=== PATIENT | female | born 1960 | race Caucasian/White ===

== ENCOUNTER → 2016-04-12 | Outpatient (CLI) | payer OTHER ==
--- NOTE | 2016-04-12 17:47 | MA ---
Screening Digital Mammogram With iCAD Analysis Clinical Indications: Routine screening. Patient has had benign right breast biopsies. Technique: Standard cephalocaudal projections are obtained. Digital breast tomosynthesis was performe d in the MLO projection with reconstruction at 1.0 mm slice thickness and composite MLO views reconst ructed. This examination is processed by the iCAD computer aided detection system. Comparison: March 2015, September 2013, April 2012, April 2011, April 2010, February 2009, 2007. Breast density: Type D: Extremely dense. Findings: CAD was reviewed. No masses, suspicious calcifications or secondary signs of malignancy are seen. There has been no significant change in the appearance of either breast. Impression: Negative mammogram. BI-RADS 1. Recommendation: Routine mammographic screening in one year as long as physical examination is negativ e in this patient with extremely dense breast parenchyma. [facility] will send a result letter to the patient. Negative mammography should not preclude additional workup of a clinically suspicious finding. The patient's information is entered into a reminder system with a target due date for her next mammo gram.
== END ==
LOC: FIMAGING 15:54
DX: Z12.31 Encounter for screening mammogram for malignant neoplasm of breast (principal)
CPT/HCPCS: G0202

== ENCOUNTER 2017-02-25 11:21 | Emergency (ER) | payer OTHER ==
[2017-02-25 11:29] VITALS: TEMP 97.9
--- NOTE | 2017-02-25 11:38 | EDPHY ---
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 which has resolved Time Seen by Provider: 02/25/17 11:38 - Personal History LMP (Females 10-55): 22-28 Days Ago Current Tetanus/Diphtheria Vaccine: Unsure - Medical/Surgical History Hx Asthma: No Hx Chronic Respiratory Disease: No Hx Diabetes: No Hx Cardiac Disease: No Hx Renal Disease: No Hx Cirrhosis: No Hx Alcoholism: No Hx HIV/AIDS: No Hx Splenectomy or Spleen Trauma: No Other PMH: migraines - Social History Smoking Status: Never smoked Constitutional: Initial Vital Signs Temperature (C) 36.6 C 02/25/17 11:26 Heart Rate 77 02/25/17 11:26 Respiratory Rate 16 02/25/17 11:26 Blood Pressure 104/86 H 02/25/17 11:26 O2 Sat (%) 99 02/25/17 11:26 O2 Delivery Mode Room Air Allergies/Adverse Reactions: anesthesia Allergy (Uncoded 02/25/17 11:26) Home Medications: Medication Instructions Recorded SUMAtriptan 02/25/17 Medical Decision Making - Diagnostics Imaging Results: Imaging Impressions Brain MRI 02/25/17 11:46 Impression: Normal MRI of the brain without contrast. Results called to Dr. Silva at 1:35 PM Extremity Venous Study 02/25/17 11:47 Impression: No deep venous thrombosis right leg. Results conveyed to Dr. Silva at 1:15 PM. Imaging: Discussed imaging studies w/ bilingual call center representative Radiologist, I viewed and interpreted images myself ED Course/Re-evaluation: CHIEF COMPLAINT: Right eye and calf pain HISTORY OF PRESENT ILLNESS: The patient is a 56 y/o female complaining of sharp right eye pain and right leg pain. For the past 2-3 weeks she had right calf pain, but last night it felt like the pain was moving up to the back of her thigh. For the past 2-3 days she felt like her heart rate has been faster and she has had a mild pressure in her chest. She has also felt more tired than normal for several days. The sharp eye pain woke her up this morning, but she was able to fall back asleep. When she woke up, her right eye felt more tired and droopy than normal. However, her family does not believe the right side of her face looks different than usual. Denies extremity weakness or numbness, headache, fever or other pertinent symptoms. REVIEW OF SYSTEMS: A 10 point review of systems was performed and is negative with the exception of the elements mentioned in the history of present illness. PHYSICAL EXAM: HR, BP, O2 Sat, RR. Temp noted General Appearance: Alert, well hydrated, appropriate, and non-toxic appearing. Head: Atraumatic without scalp tenderness or obvious injury Eyes: Pupils equal, round, reactive to light and accommodation, EOMI, no trauma , no injection. Ears: Clear bilaterally, no perforation, normal landmarks Nose: Atraumatic, no rhinorrhea, clear. Throat: Mucus membranes moist. Neck: Supple, nontender, no lymphadenopathy. Respiratory: No retractions, no distress, no wheezes, and no accessory muscle use. Lungs are clear to auscultation bilaterally. Cardiovascular: Regular rate and rhythm, no murmurs, rubs, or gallops. Good capillary refill all extremities. Gastrointestinal: Abdomen is soft, nontender, non-distended, no masses, no rebound, no guarding, no peritoneal signs. Musculoskeletal: Normal active ROM of all extremities, atraumatic. Neurological: Alert, appropriate, and interactive. The patient has normal DTRs and non-focal cranial nerves, motor, sensory, and cerebellar exam. Skin: No rashes, good turgor, no nodules on palpation. 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 See hard copy and/or "tracemaster" electronic copy for interpretation. Right lower extremity US: Negative Brain MRI: Negative DIFFERENTIAL DIAGNOSIS: MEDICAL DECISION MAKING: The patient is a 56 y/o female presenting with sharp right eye pain, right calf pain, and mild chest pressure. Her physical exam is normal. BMP, CBC, labs, right leg US, brain MRI, and EKG ordered. 1155: Nurse reports that the patient had a vasovagal episode while standing up to go to the bathroom. 1230: 1mg IV Ativan administered, so patient can have an MRI study. 1313: Spoke with radiologist, patient has a negative RLE US. 1339: Spoke with radiologist, he reports the patient's brain MRI is negative. 1343: Reassessed patient and discussed imaging findings. She now admits that her migraines begin behind her right eye and believes this may be the beginning of a migraine. Return precautions provided; patient and her family are comfortable with this plan. - Data Points Laboratory Results: Laboratory Results 02/25/17 11:40 02/25/17 11:40 02/25/17 02/25/17 02/25/17 12:06 11:40 11:40 WBC 8.64 10^3/uL 10^3/uL (3.80-9.50) RBC 4.63 10^6/uL 10^6/uL (4.18-5.33) Hgb 14.3 g/dL g/dL (12.6-16.3) POC Hgb 14.6 gm/dL gm/dL (12.6-16.3) Hct 41.4 % % (38.0-47.0) POC Hct 43 % % (38-47) MCV 89.4 fL fL (81.5-99.8) MCH 30.9 pg pg (27.9-34.1) MCHC 34.5 g/dL g/dL (32.4-36.7) RDW 12.1 % % (11.5-15.2) Plt Count 317 10^3/uL 10^3/uL (150-400) MPV 9.3 fL fL (8.7-11.7) Neut % (Auto) 73.0 % % (39.3-74.2) Lymph % (Auto) 18.3 % % (15.0-45.0) O'Brien % (Auto) 7.3 % % (4.5-13.0) Eos % (Auto) 0.2 % L % (0.6-7.6) Baso % (Auto) 0.7 % % (0.3-1.7) Nucleat RBC Rel Count 0.0 % % (0.0-0.2) Absolute Neuts (auto) 6.31 10^3/uL 10^3/uL (1.70-6.50) Absolute Lymphs (auto) 1.58 10^3/uL 10^3/uL (1.00-3.00) Absolute Monos (auto) 0.63 10^3/uL 10^3/uL (0.30-0.80) Absolute Eos (auto) 0.02 10^3/uL L 10^3/uL (0.03-0.40) Absolute Basos (auto) 0.06 10^3/uL 10^3/uL (0.02-0.10) Absolute Nucleated RBC 0.00 10^3/uL 10^3/uL (0-0.01) Immature Gran % 0.5 % % (0.0-1.1) Immature Gran # 0.04 10^3/uL 10^3/uL (0.00-0.10) POC Sodium 141 mEq/L mEq/L (134-144) Sodium 143 mEq/L mEq/L (134-144) POC Potassium 3.6 mEq/L mEq/L (3.3-5.0) Potassium 3.9 mEq/L mEq/L (3.5-5.2) POC Chloride 105 mEq/L mEq/L (97-110) Chloride 106 mEq/L mEq/L (97-110) Carbon Dioxide 22 mEq/l mEq/l (22-31) Anion Gap 15 mEq/L mEq/L (8-16) POC BUN 14 mg/dL mg/dL (7-23) BUN 14 mg/dL mg/dL (7-23) Creatinine 0.9 mg/dL mg/dL (0.6-1.0) POC Creatinine 0.9 mg/dL mg/dL (0.6-1.0) Estimated GFR > 60 Glucose 90 mg/dL mg/dL (70-100) POC Glucose 92 mg/dL mg/dL (70-100) Calcium 10.1 mg/dL mg/dL (8.5-10.4) Troponin I < 0.012 ng/mL ng/mL (0.000-0.034) Medications Given: Lorazepam (Ativan Injection) 1 mg IVP EDNOW PRN PRN Reason: Anxiety Stop: 08/24/17 12:30 Last Admin: 02/25/17 12:32 Dose: 1 mg Point of Care Test Results: 02/25/17 12:06 POC Sodium 141 POC Potassium 3.6 POC Chloride 105 POC BUN 14 POC Creatinine 0.9 POC Glucose 92 Departure - Departure Disposition: Home, Routine, Self-Care Clinical Impression: Atypical migraine Condition: Good Instructions: Migraine Headache (ED), Ocular Migraine (ED) Additional Instructions: 1. Follow-up with your primary doctor within 72 hours. 2. Return to the Emergency Department for fever, chest pain, shortness of breath , increasing pain or other worsening of condition. Referrals: Bernice Alejandra MD [Medical Doctor] - As per Instructions Report Scribed for: Dudley Silva Report Scribed by: Sonal Easley Date of Report: 02/25/17 Time of Report: 11:49
--- NOTE | 2017-02-25 12:05 | CPEKG ---
Heart Rate: 72 RR Interval: 833 P-R Interval: 164 QRSD Interval: 84 QT Interval: 368 QTC Interval: 403 P [place]: 36 QRS [place]: 82 T Wave [place]: 61 EKG Severity - NORMAL ECG - EKG Impression: SINUS RHYTHM Electronically Signed By: Dudley Silva 25-Feb-2017 15:16:30
[2017-02-25] MEDS ORDERED: LORazepam 2 MG/ML INJ ONE (12:27)
[2017-02-25] MEDS ORDERED: LORazepam 2 MG/ML INJ IVP PRN (12:31)
[2017-02-25 12:37] VITALS: RESP 18
[2017-02-25 12:39] LABS: % IMMATURE GRANULYOCYTES 0.5 % (0.0-1.1); ABSOLUTE IMMATURE GRANULOCYTES 0.04 10^3/uL (0.00-0.10); ADD DIFF? NO; ADD MORPH? NO; ADD SCAN? NO; ATYPICAL LYMPHOCYTE FLAG 0 (0-99); FRAGMENT RBC FLAG 0 (0-99); HEMATOCRIT 41.4 % (38.0-47.0); HEMOGLOBIN 14.3 g/dL (12.6-16.3); LEFT SHIFT FLG 0 (0-99); LIPEMIA HEMOLYSIS FLAG 90 (0-99); MEAN CELL HEMOGLOBIN 30.9 pg (27.9-34.1); MEAN CELL HEMOGLOBIN CONCENTR. 34.5 g/dL (32.4-36.7); MEAN CELL VOLUME 89.4 fL (81.5-99.8); MEAN PLATELET VOLUME 9.3 fL (8.7-11.7); PLATELET CLUMPS FLAG 0 (0-99); PLATELET COUNT 317 10^3/uL (150-400); RED BLOOD CELL COUNT 4.63 10^6/uL (4.18-5.33); RED CELL DISTRIBUTION WIDTH 12.1 % (11.5-15.2)
[2017-02-25 12:42] LABS: ANION GAP 15 mEq/L (8-16); CALCIUM 10.1 mg/dL (8.5-10.4); CARBON DIOXIDE 22 mEq/l (22-31); CHLORIDE 106 mEq/L (97-110); CREATININE 0.9 mg/dL (0.6-1.0); GLOMERULAR FILTRATION RATE > 60; GLUCOSE 90 mg/dL (70-100); POTASSIUM 3.9 mEq/L (3.5-5.2); SODIUM 143 mEq/L (134-144)
[2017-02-25 12:53] LABS: TROPONIN I < 0.012 ng/mL (0.000-0.034)
[2017-02-25 14:04] VITALS: BP 98/72; PULSE 76; O2SAT 93
== END 2017-02-25 14:04 | disposition home or self-care (01) ==
DX: G43.809 Other migraine, not intractable, without status migrainosus (principal)
CPT/HCPCS: 82947-QW; 96374; J2060

== ENCOUNTER 2017-02-28 12:38 | Emergency (ER) | payer OTHER ==
[2017-02-28 12:48] VITALS: RESP 18; TEMP 98.2
--- NOTE | 2017-02-28 15:08 | EDPHY ---
H & P Smoking Status: Never smoked Time Seen by Provider: 02/28/17 13:20 HPI/ROS: CHIEF COMPLAINT: Head injury HISTORY OF PRESENT ILLNESS: 56-year-old female presents to the emergency department by private vehicle after being in hit in the left side of her head with a ball. The patient works at [employer] and was hit by a ball on the left side of her face. She was then caught by another colleague and did not hit her head on the ground. She had a brief loss of consciousness. No witnessed seizure activity. No postictal state. She complains of left- sided headache as well as some left-sided facial numbness. No neck pain. No chest pain or difficulty breathing. No abdominal pain. No injury to upper or lower extremities. REVIEW OF SYSTEMS: Constitutional: No fever, no chills. Eyes: No double or blurry vision. ENT: No sore throat. Respiratory: No cough, no shortness of breath. Cardiac: No chest pain. Gastrointestinal: No abdominal pain, vomiting or diarrhea. Genitourinary: No dysuria. Musculoskeletal: No neck or back pain. Skin: No rashes. Neurological: headache. (Lisa Choa Tin) Past Medical/Surgical History: Migraine headaches (Alexandre Cho) Social History: and lives in [place]. 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 (Ida Chorina Tin) Physical Exam: General Appearance: Alert, no distress. Mentating normally and answering questions appropriately. Friends at bedside. Eyes: Pupils equal and round. Extraocular motions are all intact. ENT: Mouth: Mucous membranes moist. Respiratory: No wheezing, rhonchi, or rales, lungs are clear to auscultation. Cardiovascular: Regular rate and rhythm. Gastrointestinal: Abdomen is soft and nontender, no masses, no rebound or guarding, bowel sounds normal. Neurological: Alert and oriented x 3, cranial nerves II through XII grossly intact Skin: Warm and dry, no rashes. Musculoskeletal: Nontender to palpate along the cervical, thoracic or lumbar spine. Neck is supple. Extremities: Full range of motion and no peripheral edema. Psychiatric: Patient is oriented X 3, there is no agitation. (Ida Chorink[place]y Castle) Constitutional: Initial Vital Signs Temperature (C) 36.8 C 02/28/17 12:46 Heart Rate 81 02/28/17 12:46 Respiratory Rate 18 02/28/17 12:46 Blood Pressure 118/80 02/28/17 12:46 O2 Sat (%) 98 02/28/17 12:46 O2 Delivery Mode Room Air Allergies/Adverse Reactions: anesthesia Allergy (Uncoded 02/25/17 11:26) Home Medications: Medication Instructions Recorded SUMAtriptan 02/25/17 Medical Decision Making - Diagnostics Imaging: Discussed imaging studies w/ call manager Radiologist - Diagnostics Imaging Results: Imaging Impressions Head CT 02/28/17 13:58 Impression: No acute posttraumatic abnormality identified. Results called and discussed with ALEXANDRE CHO, at 02/28/2017 14:45 General information for patients regarding this examination can be found at [email or web address]. If you have questions or comments about this report, please contact me at (hospital) or [phone] (cell). ED Course/Re-evaluation: 56-year-old female presents to the emergency department with closed head injury. The patient has a normal neurologic examination. She did have history of loss of consciousness with continued ongoing headache. I recommended CT imaging of her brain. I did discuss the pros and cons including radiation exposure the patient agreed. CT imaging of the brain is normal. She was given closed-head injury precautions. (Alexandre Cho) I did not see this patient while she was in the emergency department. However her care was discussed with the PA while the patient was in the department. I agree with treatment plan and management. IM the secondary supervising (Rodrigo Riley) Differential Diagnosis: Head injury including but not limited to concussion, skull fracture, intraparenchymal contusion, subarachnoid, subdural and epidural hematoma. (Alexandre Cho) Departure - Departure Disposition: Home, Routine, Self-Care Clinical Impression: Head injury Qualifiers: Encounter type: initial encounter Qualified Code(s): S09.90XA - Unspecified injury of head, initial encounter Condition: Good Instructions: Concussion (ED), Head Injury (ED) Additional Instructions: Avoid any activity that might put you at risk for another head injury for at least 1 week. Return to the emergency department if he developed worsening headache, vomiting, altered mental status, or if you feel worse in any way. Referrals: Azucena Liz MD [Medical Doctor] - As per Instructions (Primary care provider communication lecturer) Work Comp Ref/Restrictions [Outside] - As per Instructions Stand Alone Forms: Work Comp Follow Up
[2017-02-28 15:10] VITALS: BP 114/74; PULSE 76; O2SAT 93
== END 2017-02-28 15:19 | disposition home or self-care (01) ==
LOC: EDUNIT#
DX: S09.90XA Unspecified injury of head, initial encounter (principal); W22.8XXA Striking against or struck by other objects, initial encounter; Y92.219 Unspecified school as the place of occurrence of the external cause